=== PATIENT | female | born 1985 | race Caucasian/White ===

== ENCOUNTER 2017-06-23 05:52 | Day surgery (SDC) | END 2017-06-23 09:02 | disposition home or self-care (01) ==

== ENCOUNTER 2018-06-09 20:45 | Emergency (ER) | payer BC ==
[~2018-06-09] VITALS: Ht 165.1 cm; Wt 76.1 kg
[~2018-06-09 20:45] MED LIST: CELEXA; OMEPRAZOLE
[2018-06-09 20:54] VITALS: BP 116/56; PULSE 71; RESP 20; Ht 165.1 cm; Wt 76.1 kg
[2018-06-10] MEDS ORDERED: KETOROLAC 60 MG INJ IM STA (00:15)
[2018-06-10] MEDS ORDERED: NAPR-985 PO (02:35)
--- NOTE | 2018-06-10 02:42 | ERD ---
ER Documentation Chief Complaint Chief Complaint L leg pain and swelling started 5 days ago HPI History of Present Illness: Patient sent from [facility] to rule out deep vein thrombosis. Patient with complaint of left calf pain is been present over the past week. Patient denies hormonal use, long flights, long road trips. No risk factors for DVT. Patient reports prolonged standing at work. At home pharmacological/nonpharmacological treatment for symptoms: denies Denies social concerns; Denies recent foreign travel ROS All systems reviewed and are negative except as per history of present illness. Medications Home Meds Active Scripts Naproxen* (Naprosyn*) 500 Mg Tablet, 500 MG PO BID PRN for PAIN AND/OR INFLAMMATION, #30 TAB Prov:MADELINE ROJAS NP 06/10/18 Reported Medications [Celexa] No Conflict Check 06/23/17 [Omeprazole] No Conflict Check 06/23/17 Allergies Allergies: Coded Allergies: Sulfa (Sulfonamide Antibiotics) (Verified Allergy, 08/11/12) PMhx/Soc History of Surgery: No Anesthesia Reaction: No Hx Neurological Disorder: No Hx Respiratory Disorders: No Hx Cardiac Disorders: No Hx Psychiatric Problems: No Hx Miscellaneous Medical Probl: Yes (gastritis) Hx Alcohol Use: No Hx Substance Use: No Hx Tobacco Use: No Smoking Status: Never smoker FmHx Family History: No diabetes Physical Exam Vitals Vital Signs Date Temp Pulse Resp B/P (MAP) Pulse Ox O2 O2 Flow FiO2 Time Delivery Rate 06/09/18 98.6 71 20 116/56 100 20:54 (76) Physical Exam Const: No acute distress Head: Atraumatic Eyes: Normal Conjunctiva ENT: Normal External Ears, Nose and Mouth. Neck: Full range of motion. No meningismus. Resp: Clear to auscultation bilaterally Cardio: Regular rate and rhythm, no murmurs Abd: Soft, non tender, non distended. Normal bowel sounds Skin: No petechiae or rashes Back: No midline or flank tenderness Ext: No cyanosis, or edema tenderness to palpation over left. Calf, no erythema, no warmth. Negative Homans. Neur: Awake and alert Psych: Normal Mood and Affect Results 24 hrs Laboratory Tests Test 06/10/18 00:42 06/10/18 00:51 POC Beta HCG, Qualitative NEGATIVE Bedside Urine pH (LAB) 6.0 Bedside Urine Protein (LAB) Negative Bedside Urine Glucose (UA) Negative Bedside Urine Ketones (LAB) Negative Bedside Urine Blood Trace-intact Bedside Urine Nitrite (LAB) Negative Bedside Urine Leukocyte Esterase (L Negative Current Medications Medications Dose Sig/Vianca Start Time Status Last (Trade) Ordered Route PRN Stop Time Admin Dose Reason Admin Ketorolac 60 mg ONCE STAT 06/10/18 DC 06/10/18 Tromethamine IM 00:15 00:51 (Toradol) 06/10/18 00:16 Procedures/MDM ED course includes a thorough examination and history. Medications: Ketorolac for pain/inflammation Imaging: Venous ultrasound of left lower extremity Labs: Urinalysis and POC urine Low suspicion for life-threatening medical emergency. Otherwise healthy patient presenting with constellation of symptoms likely representing uncomplicated left lower extremity pain secondary to prolonged standing as characterized by history, physical exam findings, lab findings, imaging findings. Per radiologist, negative for DVT on venous ultrasound. No signs of urinary infection. No respiratory distress, otherwise relatively well appearing and nontoxic. Patient educated on diagnoses, prescriptions, follow-up care, return precautions. Strict return precautions given for worsening condition; questions answered discharge. Educated on use of compression socks. Disposition for discharge with followup in 2 days with PCP/clinic. Departure Diagnosis: Primary Impression: Lower extremity pain, left Ruled Out: DVT (deep venous thrombosis) Condition: Stable Referrals: [facility] YOU HAVE RECEIVED A MEDICAL SCREENING EXAM AND THE RESULTS INDICATE THAT YOU DO NOT HAVE A CONDITION THAT REQUIRES URGENT TREATMENT IN THE EMERGENCY DEPARTMENT. FURTHER EVALUATION AND TREATMENT OF YOUR CONDITION CAN WAIT UNTIL YOU ARE SEEN IN YOUR DOCTORS OFFICE WITHIN THE NEXT 1-2 DAYS. IT IS YOUR RESPONSIBILITY TO MAKE AN APPOINTMENT FOR FOLOW-UP CARE. IF YOU HAVE A PRIMARY DOCTOR --you should call your primary doctor and schedule an appointment IF YOU DO NOT HAVE A PRIMARY DOCTOR YOU CAN CALL OUR PHYSICIAN REFERRAL HOTLINE AT IF YOU CAN NOT AFFORD TO SEE A PHYSICIAN YOU CAN CHOSE FROM THE FOLLOWING [facility] [address] [facility] [address] [facility] [address] [facility] [address] [facility]. [facility] [address] [facility] [facility] [address] [facility]. [facility] YOU HAVE RECEIVED A MEDICAL SCREENING EXAM AND THE RESULTS INDICATE THAT YOU DO NOT HAVE A CONDITION THAT REQUIRES URGENT TREATMENT IN THE EMERGENCY DEPARTMENT. FURTHER EVALUATION AND TREATMENT OF YOUR CONDITION CAN WAIT UNTIL YOU ARE SEEN IN YOUR DOCTORS OFFICE WITHIN THE NEXT 1-2 DAYS. IT IS YOUR RESPONSIBILITY TO MAKE AN APPOINTMENT FOR FOLOW-UP CARE. IF YOU HAVE A PRIMARY DOCTOR --you should call your primary doctor and schedule and appointment IF YOU DO NOT HAVE A PRIMARY DOCTOR YOU CAN CALL OUR PHYSICIAN REFERRAL HOTLINE AT . IF YOU CAN NOT AFFORD TO SEE A PHYSICIAN YOU CAN CHOSE FROM THE FOLLOWING [facility]: [facility] [address] [place] [address] [facility] [address] [place] [address] [facility] [address] [place] [address] Additional Instructions: Thank you very much for allowing us to participate in your care. Your health and safety is our top priority at [facility]. It is important to read all discharge instructions and education provided in your discharge packet. No deep vein thrombosis on your examination. Call your primary care doctor TOMORROW for an appointment during the next 2-4 days and bring all the information and medications prescribed. Have prescriptions filled and follow precisely the directions on the label. Naproxen is for inflammation/pain, this medication can be taken as needed. I recommend for you to get some compression hose that go above the knee to see if this will help with your pain. If the symptoms get worse and your provider is unavailable, return to the Emergency Department immediately. MADELINE ROJAS NP Jun 10, 2018 02:42
== END 2018-06-10 02:52 | disposition home or self-care (01) ==
LOC: FTE 20:45
DX: M79.662 Pain in left lower leg (principal)
CPT/HCPCS: 81003; 81025; 93971; 96372; 99285; J1885